=== PATIENT | male | born 1990 | race Caucasian/White ===

== ENCOUNTER 2023-09-13 09:29 | Observation (INO) | payer OTHER, SELFPAY ==
[2023-09-13 10:59] VITALS: BMI 27.2
--- NOTE | 2023-09-13 12:32 | PM.HP.1 ---
History of Present Illness History of Present Illness Date Patient Seen: 09/13/23 Time Patient Seen: 12:32 Chief complaint: appendicitis Narrative: RLQ pain started this morning at 0100. Some nausea, no fever or emesis. Reports times in the past where he has had RLQ pain. Pain is sharp and worse with movement. He is hungry. Meds Home Medications and Allergies Home Medications Medication Instructions Recorded Confirmed Type No Known Home Medications 09/13/23 09/13/23 History Review of Systems Review of Systems ROS: Yes All systems reviewed with the patient and are negative except as otherwise documented Exam Const General: cooperative, healthy appearing and comfortable Nutritional Appearance: average body habitus HENAZ Head: normocephalic and atraumatic Ears: hearing grossly normal bilaterally Eyes Periorbital: periorbital findings normal Sclera: sclerae normal Neck Neck: trachea midline Resp Effort & Inspection: normal respiratory effort Cardio Rate: regular rate Rhythm: regular rhythm GI Palpation: soft and tender (RLQ tenderness) Skin General: elasticity normal and turgor normal Neuro General: patient alert, patient awake and patient oriented x3 Cognition: normal cognition Psych Mental Status: mental status grossly normal Affect: normal affect Judgment: judgment good Assessment & Plan Assessment & Plan narrative: appendicitis Plan: IV antibiotics followed by merlene lee 09/14 Time Spent With Patient Time with patient: 30 to 49 minutes with 50% spent counseling/coordinating care
[2023-09-13] MEDS: PIPERACILLIN/TAZO 3.375 GM in SODIUM CHLORIDE 0.9% 100 ML IV ×2 (15:21→23:23)
[2023-09-13] MEDS: HYDROMORPHONE 2 MG INJ IV ×2 (15:23→20:27)
[2023-09-13 16:00] VITALS: BP 118/83; PULSE 99; RESP 16; O2SAT 93
[2023-09-13 20:00] VITALS: BP 136/82; PULSE 80; RESP 16; TEMP 36.4; O2SAT 99
[2023-09-13] MEDS: CELECOXIB 200 MG CAPSULE PO (20:27)
[2023-09-14] VITALS (10 sets, daily range): BP systolic 121–144; BP diastolic 77–94; PULSE 16–109; RESP 16–20; TEMP 36.3–37; O2SAT 91–100; BMI 27.2
--- NOTE | 2023-09-14 | PATH_ITS ---
[facility] Accession Number: [id number] No. of containers..01 Tissue . 01 Material submitted: . appendix - APPENDIX . 01 Diagnosis: Appendix, Appendectomy: Acute suppurative appendicitis with serositis. Negative for dysplasia and malignancy. MRV 09/22/2023 1617 Local . 01 Electronically signed: . Yelena Morfin MD, Pathologist NPI- [id number] . 01 Gross description: . The specimen is received in formalin labeled with the patient's name, , and appendix, consists of a billings to brown, vermiform appendix measuring 6.2 cm in length by 0.6 cm in average diameter with mesoappendix extending out to 1.5 cm. The serosa is billings to brown with adherent material consistent with exudate. The margin is inked blue. Sectioning reveals a patent lumen averaging 0.2 cm in diameter filled with billings, semi-solid material. The gomes are billings, average 0.3 cm thick with no perforation or lesions identified. Glost Tile Sorter sections to include the margin, one-half of the bisected distal tip, and cross section are submitted in cassette A1. ([id number]) /MRV 09/16/2023 1533 Local . 01 Pathologist provided ICD-10: K35.80 . 01 CPT . 589731 Specimen Comment: A courtesy copy of this report has been sent to [phone] Performed at: [address] [id number] MD James Eduardo MD Phone: [phone]
[2023-09-14] MEDS: ONDANSETRON 4 MG/2 ML INJ IV ×2 (02:56→10:34)
[2023-09-14] MEDS: LACTATED RINGERS 1,000 ML 42 ML IV (08:50)
--- NOTE | 2023-09-14 08:54 | PM.PREOP ---
Pre-operative Note Interval Note History & Physical reviewed/Exam performed by Physician: Yes Changes to H&P: No
--- NOTE | 2023-09-14 09:17 | SUR.OPER ---
Supine on padded OR bed, head on pillow, left arm padded and tucked at sides, right arm abducted less than 90 degrees,legs uncrossed, safety belt at thigh.
[2023-09-14] MEDS: BUPIVACAINE 0.25% (PF) 30 ML, EPINEPHrine 0.15 MG INJ (09:26)
--- NOTE | 2023-09-14 09:50 | PM.OP.1 ---
Operative Date/Time/Diagnoses Date of procedure: 09/14/23 Time of procedure: 09:50 Pre-op diagnosis: Acute appendicitis Post-op diagnosis: same Procedure & Clinicians Procedure: Laparoscopic appendectomy Same procedure as scheduled: Yes Indications: Acute appendicitis Surgeon: Lizzy Beebe Anesthesia Type: General Operative Notes Closure Type: primary Specimen(s): other (Appendix) Blood products transfused: none Procedure in detail: Preop diagnosis: Acute appendicitis Postop diagnosis: Same Operative procedure: Laparoscopic appendectomy Surgeon: Rosa Beebe MD Anesthetic: General with ET tube intubation with local Findings: Suppurative stage II appendicitis Procedure: Patient placed in a supine position. Prepped and draped in sterile fashion to expose his abdomen. Infraumbilical port site placed using open technique a 12 mm port. Insufflation began all of the ports were placed under direct vision including a 5 mm port in the suprapubic area and a 5 mm port in the left lateral abdomen. Appendix was identified lifted cephalad for exposure. I took down lateral wall attachments and mesentery with electrocautery and good hemostasis. Then using a JARRETT/linear stapling device I amputated the appendix and a healthy base. Staple line showed no signs of bleeding. I then placed the appendix into an Endo-Catch bag and pulled it through the infraumbilical port site intact. Abdomen was suctioned and irrigated in the pelvis removed physiologic fluid, ports removed and closure began. Closure consisted of interrupted 0 Vicryl for fascial closure. Skin was closed with a running 4-0 Vicryl. Steri-Strips and sterile dressings were placed. Patient was awakened, extubated, taken to recovery room in stable condition. Needle, instrument, sponge counts were correct. Specimen: Appendix Estimated blood loss: 10 mL Complications: none Post-operative Condition: stable Disposition: PACU
[2023-09-14] MEDS: OXYCODONE IR 5 MG TABLET PO (10:34)
[2023-09-14] MEDS: CELECOXIB 200 MG CAPSULE PO (10:35)
--- NOTE | 2023-09-14 12:45 | CM.DANOTE ---
DCP Assessment Note Pt is a 33yo M here following appendicitis, surg with Dr Beebe morning if 09/14/23. Abiel reports if he eats, voids, and walks, he can dc home today. No CM needs from her perspective. PCP DARIUS glez and self pay BRIM BUSTER reviewed EMR. BRIM BUSTER entered room and introduced self and role. Pt accompanied by partner Wen at bedside. Pt walking, eating, voiding, and eager to dc home. Denies any CM needs. Plan: home today with partner support/to transport. No CM needs identified at this time. CM team will follow as needed. DONNIE Branham Discharge Planning/Care Management CM Discharge Assessment Start: 09/14/23 12:31 Freq: Status: Active Protocol: Document 09/14/23 12:31 (Rec: 09/14/23 12:45 [id number]) Discharge Planning Assessment Assigned Green Chainer DONNIE Wallis Advance Directives? No History Provided By Patient Prior Living Arrangements House Household Members significant other Type of transporation used prior to Drives own vehicle admit Independent with ADL's Yes Is patient alert and oriented? Yes Barriers to Discharge No Transportation Arrangement family in POV Referrals Initiated None needed Whiteboard Updated in Patient Room with Yes name and ext. # of Green Chainer Review Status In Process Next Review Type Continued Stay Review
--- NOTE | 2023-09-14 13:00 | PM.DS.1 ---
History of Present Illness History of Present Illness Date Patient Seen: 09/14/23 Chief complaint: DIRECT ADMIT appendicitis Narrative: RLQ pain started this morning at 0100. Some nausea, no fever or emesis. Reports times in the past where he has had RLQ pain. Pain is sharp and worse with movement. He is hungry. Discharge Providers Provider Date of admission: 09/13/23 09:29 Discharge Date: 09/14/23 Consults: none Discharge provider: Lizzy Beebe MD Summary Hospital Course Discharge Diagnosis: appendicitis Hospital Course: Antibiotics and Lap appy Status at Discharge Cognitive/behavioral status at discharge: at baseline, oriented Functional status at discharge: independent ambulation Overall status at discharge: patient is progressing back to baseline Exam Vital Signs (past 8 hours): - 09/14/23 08:00 09/14/23 08:51 09/14/23 09:52 Temperature 97.3 F L 98 F Pulse Rate 67 90 104 H Respiratory Rate 16 16 20 Blood Pressure 144/94 H 128/83 125/84 Pulse Oximetry 100 95 94 Oxygen Delivery Method Room Air Nasal Cannula Oxygen Flow Rate 0 5 09/14/23 09:58 09/14/23 10:00 09/14/23 10:03 Temperature Pulse Rate 109 H 104 H Respiratory Rate 16 16 Blood Pressure 127/84 125/89 Pulse Oximetry 94 94 Oxygen Delivery Method Room Air Room Air Room Air Oxygen Flow Rate 09/14/23 10:08 09/14/23 10:20 09/14/23 10:50 Temperature 97.3 F L 98 F Pulse Rate 98 H 94 H 100 H Respiratory Rate 16 16 16 Blood Pressure 124/85 129/87 125/91 H Pulse Oximetry 92 93 93 Oxygen Delivery Method Room Air Oxygen Flow Rate 0 0 09/14/23 11:20 Temperature Pulse Rate 100 H Respiratory Rate 16 Blood Pressure 121/89 Pulse Oximetry 91 Oxygen Delivery Method Oxygen Flow Rate 0 Oxygen Delivery Method Room Air Oxygen Flow Rate 0 PFSH Social History household members: significant other Discharge Plan Discharge Plan Patient Disposition: Home Discharge orders & Medications Prescriptions: No Action No Known Home Medications Follow up/Referrals: Lizzy Beebe MD [Physician] - Diet/Activity/Treatments Diet: Diet as Tolerated Activity: No lifting >15 lbs for 2 weeks Skin/Wound/Dressing Care Report to your healthcare provider any signs of infection, such as:: chills, fever, increased pain and unusual drainage Dressing: remove outer dressing in 24 hrs. leave Steri strips after 10 days. May shower, no submerging wounds for 2 weeks. Visit Report/Discharge Packet Instructions: DI for an Appendectomy, DI for Laparoscopy, DI for Constipation, How to Prevent Falls, DI for Prescription Opioid Use, [facility]: Wound Care Stand Alone Forms: Patient Portal/API, Stroke Signs & Symptoms
--- NOTE | 2023-09-14 16:30 | PC.NURSE ---
Discharge: Pt returned from OR, Sl drowsy, sl nausea and pain. Zofran given IV and oxy given oral. Both were effective. Lungs diminished but clear. Did tolerated diet w/out problems. Was able to void 300 and then 350mls of urine w/out problems. Amb long distance with SO. Umbilical dressing and the one immed below it were saturated after pt had been up and they were changed. called and notifed pt would like to go home. See new orders. Pt readied for d/c to home. Reviewed d/c packet, rx's have been esent. Questions answered. Pt d/to home via auto w/SO
== END 2023-09-14 15:05 | disposition home or self-care (01) ==
PROVIDERS: Admitting Provider Surgery; Referring Provider Surgery; Visit Provider Surgery
PROC: 0DTJ4ZZ Resection of Appendix, Percutaneous Endoscopic Approach (ICD-10-PCS; CPT 44970; principal; 2023-09-14 09:00)
DX: K35.890 Other acute appendicitis without perforation or gangrene (principal)
CPT/HCPCS: 44970; 96374; 96375; 99221; G0378; G0379; J0171; J1100; J1170; J1885; J2405; J2543; J3010; J3490